=== PATIENT | male | born 1935 | race Caucasian/White ===

== ENCOUNTER 2018-10-07 19:10 | Emergency (ER) | payer MEDICARE ==
[~2018-10-07] VITALS: Ht 172.7 cm; Wt 103.2 kg
[2018-10-07 19:14] VITALS: BP 212/89; TEMP 98.3
[2018-10-07 20:00] LABS: COLLECTION METHOD IN
[2018-10-07] MEDS ORDERED: K-TAB10 PO (20:03)
[2018-10-07 20:04] LABS: BASO % 0.4 % (0.0-2.0); EOS # 0.1 (0.0-0.7); EOS % 1.7 % (0-4.0); GRAN # 6.5 (1.4-6.5); GRAN % 79.1 % (42.2-75.2); HEMATOCRIT 38.1 % (42.0-52.0); LYMPH % 11.5 % (20.0-51.0); MEAN CELL VOLUME 90 fl (80.0-100.0); MEAN CORPUSCULAR HEMOGLOBIN 28 pg (27.0-31.0); MEAN CORPUSCULAR HGB CONC 32 g/dl (33.0-37.0); MEAN PLATELET VOLUME 10.4 fl (7.4-10.4); MONO # 0.6 (0.1-0.6); MONO % 6.9 % (1.7-9.3); PLATELET COUNT 174 K/mm3 (130-400); RED BLOOD COUNT 4.22 M/mm3 (4.20-5.60); REDCELL DISTRIBUTION WIDTH-CV 14.6 % (11.5-14.5)
[2018-10-07] MEDS ORDERED: PACERONE200 MG PO (20:04)
[2018-10-07] MEDS ORDERED: PROTONIX 40MG T40 MG PO (20:04)
[2018-10-07] MEDS ORDERED: LASIX 40MG TABL40 MG PO (20:05)
[2018-10-07] MEDS ORDERED: PEPCID 20MG TAB20 MG PO (20:05)
[2018-10-07] MEDS ORDERED: FORTAMET500 M1 PO (20:06)
[2018-10-07] MEDS ORDERED: FLOMAX 0.40.4 MG/CAP PO (20:06)
[2018-10-07] MEDS ORDERED: ZOCOR 20MG20 MG PO (20:06)
[2018-10-07] MEDS ORDERED: GLUCOTROL 5M5 MG/TAB PO (20:07)
[2018-10-07] MEDS ORDERED: VITAMIN C500 MG PO (20:07)
[2018-10-07] MEDS ORDERED: ASPIRIN 81M81 MG/TA2 PO (20:07)
[2018-10-07 20:09] LABS: MUCOUS Present /lpf; PH 6 (5-8); SQUAMOUS EPITHELIAL None Seen /hpf; URINE APPEARANCE Clear; URINE BACTERIA None Seen /hpf; URINE BILIRUBIN Negative (NEGATIVE); URINE BLOOD Negative (NEGATIVE); URINE COLOR Straw; URINE GLUCOSE Negative (NEGATIVE); URINE KETONE Negative (NEGATIVE); URINE LEUKOCYTE ESTERASE Negative (NEGATIVE); URINE NITRATE Negative (NEGATIVE); URINE PROTEIN(semi-quant) Negative (NEGATIVE); URINE RBC 0-2 /hpf; URINE UROBILINOGEN Negative (NEGATIVE)
[2018-10-07 20:14] LABS: ALBUMIN 3.7 gm/dL (3.5-5.0); BILIRUBIN,TOTAL 0.5 mg/dL (0.0-1.0); CALCIUM 8.9 mg/dL (8.4-10.2); CREATININE, serum 1.16 (0.66-1.25); POTASSIUM 3.8 mmol/L (3.4-5.0); TOTAL PROTEIN 6.6 gm/dL (6.4-8.2)
[2018-10-07 21:00] VITALS: PULSE 68
== END 2018-10-07 21:00 | disposition home or self-care (01) ==
LOC: COL.ER 19:10
PROVIDERS: Family Medicine
DX: R33.9 Retention of urine, unspecified (principal); E11.9 Type 2 diabetes mellitus without complications; Z79.82 Long term (current) use of aspirin; Z79.84 Long term (current) use of oral hypoglycemic drugs

== ENCOUNTER 2018-10-13 20:50 | Emergency (ER) | payer MEDICARE ==
[~2018-10-13 20:50] MED LIST: ASPIRIN 81M81 MG/TA2 PO; FLOMAX 0.40.4 MG/CAP PO; FORTAMET500 M1 PO; GLUCOTROL 5M5 MG/TAB PO; K-TAB10 PO; LASIX 40MG TABL40 MG PO; PACERONE200 MG PO; PEPCID 20MG TAB20 MG PO; PROTONIX 40MG T40 MG PO; VITAMIN C500 MG PO; ZOCOR 20MG20 MG PO
[2018-10-13 20:59] VITALS: BP 199/79; TEMP 98
[2018-10-13] MEDS ORDERED: MACROBID 1100 MG/CAP PO (21:24)
[2018-10-13 23:58] VITALS: PULSE 71
[2018-10-14] MEDS ORDERED: Allergy (14:44)
[2018-10-14] MEDS ORDERED: ZESTRIL 10MG10 MG PO (16:29)
== END 2018-10-13 23:30 | disposition home or self-care (01) ==
LOC: COL.ER 20:50
DX: R33.9 Retention of urine, unspecified (principal); E11.9 Type 2 diabetes mellitus without complications; Z79.84 Long term (current) use of oral hypoglycemic drugs; Z79.82 Long term (current) use of aspirin

== ENCOUNTER 2018-10-14 12:25 | Inpatient (IN) | payer MEDICARE ==
[~2018-10-14] VITALS: Ht 172.7 cm; Wt 103.2 kg
[~2018-10-14 12:25] MED LIST changes: +MACROBID 1100 MG/CAP PO
[2018-10-14 12:58] LABS: BASO % 0.4 % (0.0-2.0); EOS % 0.1 % (0-4.0); GRAN # 6.6 (1.4-6.5); HEMATOCRIT 37.4 % (42.0-52.0); HEMOGLOBIN 11.8 g/dl (13.5-18.0); LYMPH # 0.9 (1.2-3.4); LYMPH % 11.3 % (20.0-51.0); MEAN CELL VOLUME 90 fl (80.0-100.0); MEAN CORPUSCULAR HEMOGLOBIN 28 pg (27.0-31.0); MEAN CORPUSCULAR HGB CONC 32 g/dl (33.0-37.0); MEAN PLATELET VOLUME 9.8 fl (7.4-10.4); MONO # 0.6 (0.1-0.6); MONO % 7.7 % (1.7-9.3); PLATELET COUNT 165 K/mm3 (130-400); RED BLOOD COUNT 4.17 M/mm3 (4.20-5.60); REDCELL DISTRIBUTION WIDTH-CV 14.5 % (11.5-14.5)
[2018-10-14 13:03] LABS: ALANINE AMINOTRANSFERASE < 6 U/L (21-72); ALBUMIN 3.7 gm/dL (3.5-5.0); ALKALINE PHOSPHATASE 80 U/L (50-136); ANION GAP 13 mmol/L (7-16); AST,SGOT 37 U/L (15-37); BILIRUBIN,TOTAL 0.7 mg/dL (0.0-1.0); BLOOD UREA NITROGEN 28 mg/dL (9-20); CALCIUM 8.8 mg/dL (8.4-10.2); CARBON DIOXIDE 26 mmol/L (22-30); CHLORIDE 97 mmol/L (98-107); CREATININE, serum 1.13 (0.66-1.25); GLUCOSE 132 mg/dL (74-106); POTASSIUM 4.1 mmol/L (3.4-5.0); SODIUM 136 mmol/L (137-145)
[2018-10-14 14:02] LABS: COLLECTION METHOD IN
[2018-10-14 14:14] LABS: PH 6 (5-8); SQUAMOUS EPITHELIAL None Seen /hpf; URINE APPEARANCE Hazy; URINE BACTERIA None Seen /hpf; URINE BILIRUBIN Negative (NEGATIVE); URINE BLOOD 2+ (NEGATIVE); URINE COLOR Yellow; URINE GLUCOSE Negative (NEGATIVE); URINE KETONE Trace (NEGATIVE); URINE LEUKOCYTE ESTERASE 2+ (NEGATIVE); URINE NITRATE Negative (NEGATIVE); URINE PROTEIN(semi-quant) Negative (NEGATIVE); URINE RBC >50 /hpf; URINE UROBILINOGEN Negative (NEGATIVE)
[2018-10-14] MEDS ORDERED: Allergy (14:44)
[2018-10-14] MEDS ORDERED: ZESTRIL 10MG10 MG PO (16:29)
--- NOTE | 2018-10-14 16:45 | NUR ---
Pt arrived to the floor into room 317 at this time. He is A/O x3, his breathing is even and unlabored on 2L O2 via NC. Pt becomes dyspneic on exertion. Pt denies any pain at this time. No N/V. Montelongo DD, ulceration visualized to tip of penis. Bottom reddened, mepilex placed for protection. Pt denies any needs at this time. POC discussed with patient and family. Call light within reach. Will continue to monitor.
[2018-10-14 17:34] VITALS: BP 117/44; PULSE 54; TEMP 98.2
[2018-10-14 19:15] VITALS: BP 117/42; PULSE 54; TEMP 97.9
--- NOTE | 2018-10-14 20:40 | NUR ---
Shift assessment complete. Pt resting in bed, awake, a&o, cooperative c cares. Pt denies pain or other c/o. INT patent. Tele in place. Montelongo to DD. O2 per NC. Pt denies needs at this time. Call light in reach, will monitor.
[2018-10-14 23:16] VITALS: BP 119/42; PULSE 50; TEMP 97.7
[2018-10-15] VITALS (7 sets, daily range): BP systolic 106–138; BP diastolic 30–77; PULSE 50–61; TEMP 97.7–98.5
[2018-10-15 07:17] LABS: BASO % 0.3 % (0.0-2.0); EOS # 0.1 (0.0-0.7); EOS % 1.5 % (0-4.0); GRAN # 5.2 (1.4-6.5); GRAN % 76.8 % (42.2-75.2); LYMPH # 0.8 (1.2-3.4); LYMPH % 12.1 % (20.0-51.0); MEAN CELL VOLUME 90 fl (80.0-100.0); MEAN CORPUSCULAR HGB CONC 31 g/dl (33.0-37.0); MEAN PLATELET VOLUME 9.2 fl (7.4-10.4); MONO # 0.6 (0.1-0.6); MONO % 8.9 % (1.7-9.3); PLATELET COUNT 139 K/mm3 (130-400); RED BLOOD COUNT 3.53 M/mm3 (4.20-5.60); REDCELL DISTRIBUTION WIDTH-CV 14.7 % (11.5-14.5)
[2018-10-15 07:29] LABS: CALCIUM 8.1 mg/dL (8.4-10.2); CREATININE, serum 1.01 (0.66-1.25); POTASSIUM 3.9 mmol/L (3.4-5.0)
[2018-10-15 07:33] LABS: HEMATOCRIT 31.8 % (42.0-52.0); HEMOGLOBIN 9.9 g/dl (13.5-18.0); MEAN CORPUSCULAR HEMOGLOBIN 28 pg (27.0-31.0)
--- NOTE | 2018-10-15 09:25 | NUR ---
Pt assessment complete. Pt is sitting up in bed just finished with breakfast. Pt is A/O x3. His breathing is even and unlaobred on RA. Pt has some dyspnea on exertion. No pain this morning. Jayda OLVERA. Pt attempted to have BM, no results. No needs at this time. Call light within reach. Will continue to monitor.
--- NOTE | 2018-10-15 11:38 | NUR ---
SW attended clincal rounds to discuss discharge planning. Patient recenetly moved to [place] and lives with his daughters. Patient's PCP is Dr Andrew and he obtains prescriptions from [facility]. Patient uses a cane for ambulation but no other DME is reported. Patient does have a DPOA. SW will continue to follow and assist with any discharge needs.
--- NOTE | 2018-10-15 19:57 | NUR ---
Shift assessment complete. Pt resting in bed, awake, a&o, cooperative c cares. Pt denies pain or other c/o. INT patent. Tele in place. Montelongo to WADE. Pt denies needs. Call light in reach, bed alarm on. Will monitor.
--- NOTE | 2018-10-15 20:02 | NUR ---
Pt had uneventful day, was afebrile. Denied any pain. POC discussed with patient and family who verbalize understanding. No diarrhea visualized through the day. Jayda OLVERA. Call light within reach.
[2018-10-16 04:09] VITALS: BP 117/45; PULSE 52; TEMP 98
[2018-10-16 07:57] LABS: BASO % 0.5 % (0.0-2.0); EOS # 0.2 (0.0-0.7); EOS % 3.7 % (0-4.0); GRAN # 3.9 (1.4-6.5); GRAN % 69.5 % (42.2-75.2); HEMOGLOBIN 10.2 g/dl (13.5-18.0); LYMPH % 17.9 % (20.0-51.0); MEAN CELL VOLUME 91 fl (80.0-100.0); MEAN CORPUSCULAR HEMOGLOBIN 28 pg (27.0-31.0); MEAN CORPUSCULAR HGB CONC 31 g/dl (33.0-37.0); MONO # 0.5 (0.1-0.6); PLATELET COUNT 154 K/mm3 (130-400); RED BLOOD COUNT 3.59 M/mm3 (4.20-5.60); REDCELL DISTRIBUTION WIDTH-CV 14.6 % (11.5-14.5)
[2018-10-16 08:01] VITALS: BP 138/51; PULSE 49; TEMP 97.7
[2018-10-16 08:07] LABS: HEMATOCRIT 32.5 % (42.0-52.0)
[2018-10-16 08:12] LABS: CALCIUM 8.1 mg/dL (8.4-10.2); CREATININE, serum 0.98 (0.66-1.25); POTASSIUM 3.8 mmol/L (3.4-5.0)
[2018-10-16] MEDS ORDERED: OMNICEF 300MG300 MG PO (10:32)
[2018-10-16] MEDS ORDERED: K-TAB10 PO (10:33)
[2018-10-16] MEDS ORDERED: LASIX 40MG TABL40 MG PO (10:33)
[2018-10-16 13:08] VITALS: BP 133/75; PULSE 68; TEMP 99.9
--- NOTE | 2018-10-16 14:46 | NUR ---
Pt discharge instructions given to pt. and both daughters with verbal understanding. Tele off after telemetry notified of discharge. INT removed from L FA with cath intact. No bleeding from site. Bandaid applied. Montelongo cath emptied. Urine clear yellow. Assist to w/c. All questions answered. Dismissed with daughters to home.
== END 2018-10-16 14:30 | disposition home or self-care (01) | DRG 699 ==
LOC: COL.ER 12:25 → MEDICAL 13:51
PROVIDERS: Family Medicine; Physician Assistant; ADMIT Hospitalist
DX: T83.518A Infection and inflammatory reaction due to other urinary catheter, initial encounter (principal); N30.00 Acute cystitis without hematuria; Y84.6 Urinary catheterization as the cause of abnormal reaction of the patient, or of later complication, without mention of misadventure at the time of the procedure; I25.10 Atherosclerotic heart disease of native coronary artery without angina pectoris; E11.9 Type 2 diabetes mellitus without complications; N40.1 Benign prostatic hyperplasia with lower urinary tract symptoms; R33.8 Other retention of urine; I10 Essential (primary) hypertension; I48.0 Paroxysmal atrial fibrillation; R19.7 Diarrhea, unspecified; K21.9 Gastro-esophageal reflux disease without esophagitis; E78.5 Hyperlipidemia, unspecified; Z95.1 Presence of aortocoronary bypass graft; Z79.84 Long term (current) use of oral hypoglycemic drugs; Z79.82 Long term (current) use of aspirin; Z87.891 Personal history of nicotine dependence; Z88.1 Allergy status to other antibiotic agents
CPT/HCPCS: 99222-AI; 99232-AI; 99239; A4216; J0696; J1644; J1815; J2270; J2405; J2543; J7030; Q9967

== ENCOUNTER → 2018-10-17 | Outpatient (CLI) | payer MEDICARE ==
[~2018-10-17] MED LIST changes: +Allergy; +OMNICEF 300MG300 MG PO; +ZESTRIL 10MG10 MG PO
[2018-10-17 12:54] LABS: HEMOGLOBIN 10.5 g/dl (13.5-18.0); MEAN CELL VOLUME 91 fl (80.0-100.0); MEAN CORPUSCULAR HEMOGLOBIN 29 pg (27.0-31.0); MEAN CORPUSCULAR HGB CONC 32 g/dl (33.0-37.0); MEAN PLATELET VOLUME 9.9 fl (7.4-10.4); PLATELET COUNT 202 K/mm3 (130-400); RED BLOOD COUNT 3.67 M/mm3 (4.20-5.60); REDCELL DISTRIBUTION WIDTH-CV 14.4 % (11.5-14.5)
[2018-10-17 12:56] LABS: HEMATOCRIT 33.3 % (42.0-52.0)
[2018-10-17 13:01] LABS: ALBUMIN 3.2 gm/dL (3.5-5.0); BILIRUBIN,TOTAL 0.3 mg/dL (0.0-1.0); CALCIUM 8.4 mg/dL (8.4-10.2); CHOLESTEROL RISK RATIO 4.8; CREATININE, serum 0.99 (0.66-1.25); POTASSIUM 3.9 mmol/L (3.4-5.0); TOTAL PROTEIN 6.3 gm/dL (6.4-8.2)
[2018-10-17 13:13] LABS: BAND 9 % (0-10); EOSINOPHIL 4 % (0-4); LYMPHOCYTE 13 % (20.0-51.0); NEUTROPHILS 70 % (42.0-75.2); PLATELET ESTIMATE NORMAL (NORMAL)
== END ==
LOC: COL.LAB 11:52
PROVIDERS: Family Medicine
DX: E11.9 Type 2 diabetes mellitus without complications (principal); Z86.79 Personal history of other diseases of the circulatory system

== ENCOUNTER 2018-10-24 16:52 | Emergency (ER) | payer MEDICARE ==
[~2018-10-24] VITALS: Ht 172.7 cm; Wt 102.7 kg
[2018-10-24 16:58] VITALS: TEMP 97.1
[2018-10-24] MEDS ORDERED: KLOR-CON SPRIN10 MEQ PO (17:18)
[2018-10-24] MEDS ORDERED: K-TAB10 PO (17:20)
[2018-10-24 18:21] LABS: COLLECTION METHOD CATHETER
[2018-10-24 18:24] LABS: HEMOGLOBIN 11.3 g/dl (13.5-18.0); MEAN CELL VOLUME 90 fl (80.0-100.0); MEAN CORPUSCULAR HEMOGLOBIN 28 pg (27.0-31.0); MEAN CORPUSCULAR HGB CONC 31 g/dl (33.0-37.0); MEAN PLATELET VOLUME 9.2 fl (7.4-10.4); PLATELET COUNT 264 K/mm3 (130-400); RED BLOOD COUNT 4.08 M/mm3 (4.20-5.60); REDCELL DISTRIBUTION WIDTH-CV 14.6 % (11.5-14.5)
[2018-10-24 18:27] LABS: PH 6 (5-8); SQUAMOUS EPITHELIAL None Seen /hpf; URINE APPEARANCE Clear; URINE BACTERIA None Seen /hpf; URINE BILIRUBIN Negative (NEGATIVE); URINE BLOOD Negative (NEGATIVE); URINE COLOR Yellow; URINE GLUCOSE Negative (NEGATIVE); URINE KETONE Negative (NEGATIVE); URINE LEUKOCYTE ESTERASE Negative (NEGATIVE); URINE NITRATE Negative (NEGATIVE); URINE PROTEIN(semi-quant) Negative (NEGATIVE); URINE RBC 0-2 /hpf; URINE UROBILINOGEN Negative (NEGATIVE)
[2018-10-24 18:40] LABS: HEMATOCRIT 36.9 % (42.0-52.0)
[2018-10-24 18:42] LABS: ALBUMIN 3.4 gm/dL (3.5-5.0); BILIRUBIN,TOTAL 0.3 mg/dL (0.0-1.0); CALCIUM 8.4 mg/dL (8.4-10.2); CREATININE, serum 1.09 (0.66-1.25); POTASSIUM 4.1 mmol/L (3.4-5.0); TOTAL PROTEIN 6.5 gm/dL (6.4-8.2)
[2018-10-24 19:10] VITALS: BP 133/56; PULSE 55
[2018-10-24 19:18] LABS: EOSINOPHIL 1 % (0-4); LYMPHOCYTE 16 % (20.0-51.0); NEUTROPHILS 77 % (42.0-75.2); PLATELET ESTIMATE NORMAL (NORMAL)
== END 2018-10-24 19:15 | disposition home or self-care (01) ==
LOC: COL.ER 16:52
PROVIDERS: Nurse Practitioner
DX: R33.9 Retention of urine, unspecified (principal); I10 Essential (primary) hypertension; I25.10 Atherosclerotic heart disease of native coronary artery without angina pectoris; E11.9 Type 2 diabetes mellitus without complications; Z79.84 Long term (current) use of oral hypoglycemic drugs; Z95.5 Presence of coronary angioplasty implant and graft; Z87.891 Personal history of nicotine dependence; Z79.82 Long term (current) use of aspirin

== ENCOUNTER 2018-11-14 05:25 | Day surgery (SDC) | payer MEDICARE ==
[~2018-11-14] VITALS: Ht 172.7 cm; Wt 105.9 kg
[2018-11-14] VITALS (12 sets, daily range): BP systolic 108–150; BP diastolic 32–58; PULSE 50–68; TEMP 97.5–98.4
[~2018-11-14 05:25] MED LIST changes: +KLOR-CON SPRIN10 MEQ PO
[2018-11-14] MEDS ORDERED: LASIX 40MG TABL40 MG PO (07:05)
[2018-11-14] MEDS ORDERED: K-DUR20 MEQ PO (07:06)
[2018-11-14] MEDS ORDERED: PROTONIX20 MG PO (07:07)
[2018-11-14] MEDS ORDERED: PROTONIX 40MG T40 MG PO (07:08)
[2018-11-14] MEDS ORDERED: PACERONE100 MG PO (07:08)
[2018-11-14] MEDS ORDERED: GLUMETZA500 MG PO (07:12)
[2018-11-14] MEDS ORDERED: FLOMAX 0.40.4 MG/CAP PO (07:13)
[2018-11-14] MEDS ORDERED: ZOCOR 20MG20 MG PO (07:13)
[2018-11-14] MEDS ORDERED: VITAMIN C500 MG PO (07:14)
[2018-11-14] MEDS ORDERED: ASPIRIN 81M81 MG/TA2 PO (07:14)
--- NOTE | 2018-11-14 11:10 | NUR ---
arrived on unit from PACU per bed, awake and alert, IV infusing and placed on pump at 100ml/hr, CBI infusing at a fast rate and urine is clear in the tubing and rate slowed a little,
--- NOTE | 2018-11-14 11:30 | NUR ---
watching TV, family at bedside, full assessment completed, see interventions for further info, urine remains clear in tubing and CBI rate again slowed
--- NOTE | 2018-11-14 12:15 | NUR ---
watching TV, assisted him with ordering something for lunch
--- NOTE | 2018-11-14 13:00 | NUR ---
had lunch and tolerated well, watching TV, CBI continues at a mod rate and urine clear light yellow
--- NOTE | 2018-11-14 14:05 | NUR ---
CBI continues and rate slowed as urine in tubing is very clear yellow, family at bedside
--- NOTE | 2018-11-14 15:01 | NUR ---
watching TV, denies pain or needs
--- NOTE | 2018-11-14 16:00 | NUR ---
assisted up to bathroom to try and have bowel movement, only passed flatus,urine red in tubing while up and moving and CBI rate increased, after back into bed became clear again, also had some bleeding around meatus and care provided
--- NOTE | 2018-11-14 18:40 | NUR ---
bedside shift report given to FEDERICO Whiting
--- NOTE | 2018-11-14 20:50 | NUR ---
IVF complete, patient taking oral fluids well, capped at this time. Has CBI infusing at slow rate, urine in vallejo is pink with flecks of sediment noted. Catheter care provided and bed pad changed due to bloody leakage. is alert and oriented, watching TV.
--- NOTE | 2018-11-15 03:50 | NUR ---
Bloody leakage around catheter insertion in penis, hand irrigated with no clots returned. Catheter care provided, B&O suppository given and jayson care provided.
[2018-11-15 03:59] VITALS: BP 125/50; PULSE 61; TEMP 98
[2018-11-15 07:13] VITALS: BP 128/49; PULSE 58; TEMP 98.4
--- NOTE | 2018-11-15 08:30 | NUR ---
Patient has been having bleeding from around the catheter. No clots noted. His urine is yellow with some sedement. Patient denies pain. Cleaned up his chateter and changed his gown. No other changes at this time. Call light within reach.
--- NOTE | 2018-11-15 09:46 | NUR ---
First visit from the cargo checker. No needs right now.
--- NOTE | 2018-11-15 10:45 | NUR ---
ALBA met with the patient and patient's daughter, Sarah, to discuss discharge plan. The patient lives in [place] with his daughters, Sarah and Amanda, and his son-in-law. He reports independence with ADLs and has a cane. The patient's PCP is Dr. Lokesh Andrew and he receives his medications at the [facility]. He reports no difficulties obtaining his meds. The patient does not have advanced directives in EMR, but his daughter reports that he does have them completed. Sarah states that her and her sister, Amanda, are the patient's DPOA-HC and that she plans to bring a copy to the hospital. The patient plans to return home with his family upon discharge. No additional needs at this time.
[2018-11-15 11:48] VITALS: BP 121/43; PULSE 53; TEMP 98.1
--- NOTE | 2018-11-15 15:30 | NUR ---
Patient stated he was not feeling well. He had a little rise in his temperature to 99.4 oral. He stated that his stomach was upset but his daughter gave him some snack crackers and he is feeling better. He stated he usully has a snack this time of day. Denies nausea. Encouraged him to do deep breathing exercises. Explained that a bump in temperature can be caused by that and having surgery in genera. Patient verbalized understanding. No other changes at this time. Call light within reach.
[2018-11-15 15:45] VITALS: BP 142/47; PULSE 64; TEMP 99
[2018-11-15 20:28] VITALS: BP 157/47; PULSE 62; TEMP 98.5
--- NOTE | 2018-11-15 20:30 | NUR ---
Pt. sitting up in bed at this time. Pt. is A&OX3, assessment complete. INT to lt. hand patent. Pt. denies pain or other needs at this time.
[2018-11-15 23:01] VITALS: BP 131/42; PULSE 58; TEMP 98.9
[2018-11-16 03:43] VITALS: BP 131/43; PULSE 55; TEMP 97.8
[2018-11-16 07:40] VITALS: BP 131/41; PULSE 52; TEMP 98.2
--- NOTE | 2018-11-16 11:00 | NUR ---
Vallejo catheter discontinued at this time. Primed with 150ml of saline before discontinued the vallejo. 30ml removed from vallejo balloon. Patient tolerated well. Sky care completed. Explained how the six cup routine works. Explained that we need him to use the urinal everytime he goes. No other changes at this time. Call light within reach.
--- NOTE | 2018-11-16 11:06 | NUR ---
Initial visit; Patient thanked Pl[employer] Maintenance for looking in on him, visiting and offering Spiritual Care.
[2018-11-16 11:27] VITALS: BP 141/48; PULSE 56; TEMP 98.5
[2018-11-16 16:00] VITALS: BP 143/45; PULSE 61; TEMP 98.4
--- NOTE | 2018-11-16 18:00 | NUR ---
Patient is discharging home. Discharge instructions discussed with patient. No questions verbalized. INT discontinued. Prior to discharge patient's daughter was worried about him going home and not being able to void. He voided twice and we bladder scanned him afterwards. The first time he had 300mls left, the second time he voided in the bathroom standing up and had [address] Sifuentes aware. Patient denies urge to void afterwards. No other changes at this time. Call light within reach.
--- NOTE | 2018-11-16 18:10 | NUR ---
Patient has discharged. He has his post-op appointment set. No questions verbalized. INT discontinued. Patient walked out via wheel by Binta LOUIE.
== END 2018-11-16 18:10 | disposition home or self-care (01) ==
LOC: SDCO 05:25 → SURG 11:10 → SDCO 11-16 18:10
DX: N40.1 Benign prostatic hyperplasia with lower urinary tract symptoms (principal); R33.8 Other retention of urine; R35.1 Nocturia; N30.80 Other cystitis without hematuria; Z88.8 Allergy status to other drugs, medicaments and biological substances; I48.0 Paroxysmal atrial fibrillation; E11.9 Type 2 diabetes mellitus without complications; Z79.84 Long term (current) use of oral hypoglycemic drugs; I11.9 Hypertensive heart disease without heart failure; E78.5 Hyperlipidemia, unspecified; I25.10 Atherosclerotic heart disease of native coronary artery without angina pectoris; Z95.1 Presence of aortocoronary bypass graft; K21.9 Gastro-esophageal reflux disease without esophagitis; Z79.899 Other long term (current) drug therapy; Z79.82 Long term (current) use of aspirin; Z80.9 Family history of malignant neoplasm, unspecified; Z83.3 Family history of diabetes mellitus; Z82.49 Family history of ischemic heart disease and other diseases of the circulatory system
CPT/HCPCS: OP; J0690; J2250; J2405; J2704; J3010; J3480

== ENCOUNTER 2022-03-08 06:53 | Emergency (ER) | payer MEDICARE ==
[~2022-03-08] VITALS: Ht 172.7 cm; Wt 81.4 kg
[~2022-03-08 06:53] MED LIST changes: +GLUMETZA500 MG PO; +K-DUR20 MEQ PO; +PACERONE100 MG PO; +PROTONIX20 MG PO
[2022-03-08 06:56] VITALS: TEMP 98
[2022-03-08 07:25] LABS: BASO % 0.3 % (0.0-2.0); EOS % 0.2 % (0.0-4.0); GRAN # 7.6 K/mm3 (1.4-6.5); GRAN % 77.6 % (42.2-75.2); HEMATOCRIT 36.5 % (42.0-52.0); LYMPH # 1.3 K/mm3 (1.2-3.4); LYMPH % 13.6 % (20.0-51.0); MEAN CELL VOLUME 92 fl (80.0-100.0); MEAN CORPUSCULAR HEMOGLOBIN 30 pg (27-31); MEAN CORPUSCULAR HGB CONC 33 g/dl (33.0-37.0); MEAN PLATELET VOLUME 10.1 fl (7.4-10.4); MONO # 0.8 K/mm3 (0.1-0.6); MONO % 7.9 % (1.7-9.3); PLATELET COUNT 140 K/mm3 (130-400); RED BLOOD COUNT 3.98 M/mm3 (4.20-5.60); REDCELL DISTRIBUTION WIDTH-CV 14.3 % (11.5-14.5)
[2022-03-08 07:42] LABS: ALBUMIN 3.3 gm/dL (3.4-4.8); CALCIUM 8.7 mg/dL (8.4-10.2); CREATININE, serum 1.27 mg/dL (0.72-1.25); POTASSIUM 4.1 mmol/L (3.5-4.5); TOTAL PROTEIN 6.2 gm/dL (6.2-8.1)
[2022-03-08 07:48] LABS: TROPONIN-I 0.013 ng/mL (0.00-0.033)
[2022-03-08 10:09] LABS: COLLECTION METHOD CLEAN CATCH
[2022-03-08 10:27] LABS: MUCOUS Present (NOT PRESENT); URINE BACTERIA Rare /hpf (NONE SEEN)
[2022-03-08 10:28] LABS: URINE APPEARANCE Cloudy (CLEAR/HAZY); URINE BLOOD 1+ (NEGATIVE); URINE COLOR Yellow (YELLOW); URINE GLUCOSE Negative (NEGATIVE); URINE KETONE Negative (NEGATIVE); URINE NITRATE Positive (NEGATIVE); URINE PROTEIN(semi-quant) 1+ (NEGATIVE); URINE UROBILINOGEN 0.2 E.U/dL (0.2-1.0)
--- NOTE | 2022-03-08 13:00 | NUR ---
SW consult received due to patients daughters stating that they are no longer able to care for him at home. SW met with patient and his two daughters( Sarah and Amanda) at bedside. Patient lives in a home with his daughters and Amanda's that they all own together. Patient is normally independent with his ADL's needing minimal assistance up until a "few days ago". He has both a walker and a cane at home that he utilizes to assist with mobility. He has no home oxygen needs. PCp is Dr. Andrew and he gets his prescriptions from [facility]. Sarah states that she stays at home with the patient during the day and he no longer drives so she takes him to appointments. Both Sarah and Amanda feel like they are not able to "safely" care for the patient at home anymore. Over the fast few days, they have had to contact EMS "several times" for a lift assist due to falls. Patient is in agreement with going to a nursing facility. SW discussed their options such as [facility], [facility] and [facility]. Upon contact with the nursing homes, [facility] states they do not have a LTC bed open at this time. Both [facility] and [facility] do, but they both have Covid in the building. SW discussed the above with the patient and his children and they would like to go with [facility]. Patients clinical documentation and emergency admit orders sent to [facility], whom accepts the patient. Transprtation arranged for usp to pick the patient up at 1300. Patient RN notified.
[2022-03-08 13:40] VITALS: BP 127/69; PULSE 86
[2022-03-09] MEDS ORDERED: CEPHALEXIN500 M1 PO (21:32)
== END 2022-03-08 13:40 | disposition home or self-care (01) ==
LOC: COL.ER 06:53
PROVIDERS: Personal Emergency Response Attendant
DX: S51.811A Laceration without foreign body of right forearm, initial encounter (principal); R53.1 Weakness; Z87.891 Personal history of nicotine dependence; W18.30XA Fall on same level, unspecified, initial encounter; Y92.009 Unspecified place in unspecified non-institutional (private) residence as the place of occurrence of the external cause
CPT/HCPCS: J7050